=== PATIENT | male | born 1965 | race Caucasian/White ===

== ENCOUNTER → 2016-11-25 | Outpatient (CLI) | payer OTHER | END | disposition home or self-care (01) | LOC: LABWHC1 09:40 | PROVIDERS: ATTEND Internal Medicine | DX: E03.9 Hypothyroidism, unspecified (principal) | CPT/HCPCS: 36415; 84439; 84443; 86376; 86800 ==

== ENCOUNTER → 2017-04-27 | Outpatient (CLI) | payer OTHER | END | disposition home or self-care (01) | LOC: LABWHC1 08:52 | PROVIDERS: ATTEND Internal Medicine | DX: E03.9 Hypothyroidism, unspecified (principal) | CPT/HCPCS: 36415; 84439; 84443 ==

== ENCOUNTER → 2017-07-26 | Outpatient (CLI) | payer OTHER | END | disposition home or self-care (01) | LOC: LABWHC1 07:15 | PROVIDERS: ATTEND Internal Medicine | DX: E03.9 Hypothyroidism, unspecified (principal) | CPT/HCPCS: 36415; 84439; 84443 ==

== ENCOUNTER → 2017-08-23 | Outpatient (CLI) | payer MEDICARE, OTHER ==
--- NOTE | 2017-08-23 23:20 | MR ---
EXAMINATION TYPE: MR foot LT wo/w con DATE OF EXAM: 08/23/2017 COMPARISON: NONE HISTORY: 52-year-old male Soft tissue disorder Technique: Multiplanar, multisequence images of the left foot were obtained before and after administ ration of 8 mL intravenous Gadavist gadolinium contrast. FINDINGS: Within the plantar subcutaneous soft tissues inferior to the second digit at the level of the proxima l phalangeal neck, there is a T2 hyperintense and T1 intermediate signal intensity, nonenhancing, cir cumscribed lesion measuring 1.4 cm wide by 0.9 cm AP by 1.1 cm craniocaudal. This closely approaches but does not seem to directly contact the second flexor tendon. Small MTP joint effusions are present. Degenerative changes noted along the lateral aspect of the fir st MTP joint and also involving the first metatarsal fibular sesamoidal joint. No suspicious bone marrow replacement or evident bone marrow edema. The extensor and flexor tendons show no gross abnormality. No other significant soft tissue abnormali ties seen. A palpable marker is present along the skin surface to indicate the subcutaneous lesion. IMPRESSION: 1. At the site of clinical concern, there is a 1.4 cm circumscribed nonenhancing cyst centered within the subcutaneous fat just inferior to the second proximal phalangeal neck. This closely approaches b ut does not seem to contact the second flexor tendon. Intermediate T1 signal intensity suggests some internal proteinaceous debris or prior hemorrhage. Consider a ganglion or epidermal inclusion cyst. T argeted ultrasound could confirm the cystic nature. 2. The remaining soft tissues and underlying bone show no gross abnormality.
== END | disposition home or self-care (01) ==
LOC: RADMRIMAIN 08:39
PROVIDERS: ATTEND Podiatrist
DX: M67.472 Ganglion, left ankle and foot (principal); R93.7 Abnormal findings on diagnostic imaging of other parts of musculoskeletal system; M79.89 Other specified soft tissue disorders
CPT/HCPCS: 73720; A9581

== ENCOUNTER → 2017-10-04 | Outpatient (CLI) | payer OTHER ==
[2017-10-04 08:23] LABS: Basophils # (A) 0.1 k/uL (0-0.2); Basophils % (A) 1 %; CH 30.1; CHCM 32.4; Eosinophils # (A) 0.3 k/uL (0-0.7); Eosinophils % (A) 4 %; HCT 45.9 % (39.0-53.0); HDW 2.33; HGB 14.6 gm/dL (13.0-17.5); Luc # (Auto) 0.18; Luc % (Auto) 2; Lymphocytes # (A) 3.1 k/uL (1.0-4.8); Lymphocytes % (A) 35 %; MCH 29.8 pg (25.0-35.0); MCHC 31.9 g/dL (31.0-37.0); MCV 93.5 fL (80.0-100.0); Monocytes # (A) 0.9 k/uL (0-1.0); Monocytes % (A) 10 %; Neutrophils # (A) 4.3 k/uL (1.3-7.7); Neutrophils % (A) 48 %; RBC 4.91 m/uL (4.30-5.90); RDW 14.5 % (11.5-15.5); WBC 8.9 k/uL (3.8-10.6); WBC (Perox) 9.18
[2017-10-04 11:39] LABS: ALT 43 U/L (21-72); AST 23 U/L (17-59); Alkaline Phosphatase 98 U/L (38-126); Anion Gap 8 mmol/L; Blood Urea Nitrogen 17 mg/dL (9-20); Calcium 9.9 mg/dL (8.4-10.2); Carbon Dioxide 23 mmol/L (22-30); Chloride 111 mmol/L (98-107); Cholesterol 139 mg/dL (<200); Glucose 102 mg/dL (74-99); HDL Cholesterol 41 mg/dL (40-60); Magnesium 2.1 mg/dL (1.6-2.3); Non-African American GFR(MDRD) >60 (>60 ml/min/1.73 sqM); Potassium 4.4 mmol/L (3.5-5.1); Sodium 142 mmol/L (137-145); Total Bilirubin 0.2 mg/dL (0.2-1.3); Total Protein 6.7 g/dL (6.3-8.2)
[2017-10-04 12:05] LABS: Prostate Specific Antigen 2.11 ng/mL (0.00-4.00)
== END | disposition home or self-care (01) ==
LOC: LABWHC1 07:35
PROVIDERS: ATTEND Internal Medicine
DX: Z00.00 Encounter for general adult medical examination without abnormal findings (principal); R73.9 Hyperglycemia, unspecified; E03.9 Hypothyroidism, unspecified; E78.5 Hyperlipidemia, unspecified; J44.9 Chronic obstructive pulmonary disease, unspecified; E87.8 Other disorders of electrolyte and fluid balance, not elsewhere classified
CPT/HCPCS: 36415; 80053; 80061; 82306; 83036; 83735; 84153; 84439; 84443; 85025

== ENCOUNTER → 2018-01-24 | Outpatient (CLI) | payer OTHER ==
[2018-01-24 08:59] LABS: Basophils # (A) 0.1 k/uL (0-0.2); Basophils % (A) 1 %; Eosinophils # (A) 0.2 k/uL (0-0.7); Eosinophils % (A) 3 %; HCT 44.7 % (39.0-53.0); HGB 15.1 gm/dL (13.0-17.5); Lymphocytes # (A) 3.2 k/uL (1.0-4.8); Lymphocytes % (A) 36 %; MCH 30.1 pg (25.0-35.0); MCHC 33.9 g/dL (31.0-37.0); MCV 88.9 fL (80.0-100.0); Mean Platelet Volume 7.6; Monocytes # (A) 0.6 k/uL (0-1.0); Monocytes % (A) 7 %; Neutrophils # (A) 4.5 k/uL (1.3-7.7); Neutrophils % (A) 51 %; Platelet Count 246 k/uL (150-450); RBC 5.03 m/uL (4.30-5.90); RDW 13.3 % (11.5-15.5); WBC 8.8 k/uL (3.8-10.6)
[2018-01-24 11:49] LABS: T4, Free (Free Thyroxine) 1.14 ng/dL (0.78-2.19)
[2018-01-24 11:51] LABS: ALT 55 U/L (21-72); AST 33 U/L (17-59); Alkaline Phosphatase 97 U/L (38-126); Anion Gap 12 mmol/L; Blood Urea Nitrogen 15 mg/dL (9-20); Calcium 10.3 mg/dL (8.4-10.2); Carbon Dioxide 26 mmol/L (22-30); Chloride 108 mmol/L (98-107); Cholesterol 126 mg/dL (<200); Glucose 96 mg/dL (74-99); HDL Cholesterol 33 mg/dL (40-60); LDL Cholesterol,Calculated 58 mg/dL (0-99); Magnesium 2.1 mg/dL (1.6-2.3); Potassium 4.1 mmol/L (3.5-5.1); Sodium 146 mmol/L (137-145); Total Bilirubin 0.3 mg/dL (0.2-1.3); Total Protein 7.1 g/dL (6.3-8.2); Triglycerides 176 mg/dL (<150)
[2018-01-24 12:03] LABS: Prostate Specific Antigen 2.23 ng/mL (0.00-4.00)
[2018-01-24 20:02] LABS: Hemoglobin A1C 5.4 % (4.0-6.0)
== END | disposition home or self-care (01) ==
LOC: LABWHC1 08:30
PROVIDERS: ATTEND Internal Medicine
DX: Z00.00 Encounter for general adult medical examination without abnormal findings (principal); E78.5 Hyperlipidemia, unspecified; E03.9 Hypothyroidism, unspecified; J44.9 Chronic obstructive pulmonary disease, unspecified; E87.8 Other disorders of electrolyte and fluid balance, not elsewhere classified; R73.9 Hyperglycemia, unspecified
CPT/HCPCS: 36415; 80053; 80061; 82306; 83036; 83735; 84153; 84439; 84443; 85025

== ENCOUNTER → 2018-02-09 | Outpatient (CLI) | payer OTHER ==
--- NOTE | 2018-02-09 10:47 | US ---
EXAMINATION TYPE: US thyroid st tissue head/neck DATE OF EXAM: 02/09/2018 COMPARISON: 10/10/2014 CLINICAL HISTORY: 52-year-old male R04.9 Enlarged nodule. follow up exam Technique: Multiple sonographic images of the thyroid gland are obtained. FINDINGS: GLAND SIZE: Right Lobe: 6.3 x 1.9 x 3.4 cm Overall Parenchyma: heterogenous Left Lobe: 6.2 x 2.1 x 3.6 cm Overall Parenchyma: heterogeneous Isthmus Thickness: 0.9 cm NODULES RIGHT: # of nodules measured on right: 0 LEFT: # of nodules measured on left: 0 ISTHMUS: # of nodules measured in the isthmus: 0 Bilateral neck scanned, no evidence of lymphadenopathy. IMPRESSION: Heterogeneous and enlarged thyroid gland suggesting goiter. No discrete nodules.
== END | disposition home or self-care (01) ==
LOC: RADUSWWP 09:30
PROVIDERS: ATTEND Internal Medicine
DX: E04.9 Nontoxic goiter, unspecified (principal)
CPT/HCPCS: 76536

== ENCOUNTER → 2018-05-02 | Outpatient (CLI) | payer OTHER ==
[2018-05-02 07:46] LABS: Anion Gap 11 mmol/L; Blood Urea Nitrogen 15 mg/dL (9-20); Calcium 9.7 mg/dL (8.4-10.2); Carbon Dioxide 23 mmol/L (22-30); Chloride 110 mmol/L (98-107); Glucose 103 mg/dL (74-99); Potassium 4.2 mmol/L (3.5-5.1); Sodium 144 mmol/L (137-145)
[2018-05-02 08:03] LABS: T4, Free (Free Thyroxine) 1.03 ng/dL (0.78-2.19)
== END | disposition home or self-care (01) ==
LOC: LABWHC1 07:02
PROVIDERS: ATTEND Internal Medicine
DX: I10 Essential (primary) hypertension (principal); E03.9 Hypothyroidism, unspecified
CPT/HCPCS: 36415; 80048; 84439; 84443

== ENCOUNTER → 2018-10-21 | Outpatient (CLI) | payer OTHER ==
[2018-10-21 08:34] LABS: Basophils # (A) 0.1 k/uL (0-0.2); Basophils % (A) 1 %; Eosinophils # (A) 0.3 k/uL (0-0.7); Eosinophils % (A) 4 %; HCT 44.1 % (39.0-53.0); HGB 14.6 gm/dL (13.0-17.5); Lymphocytes % (A) 44 %; MCH 29.9 pg (25.0-35.0); MCV 90.5 fL (80.0-100.0); Mean Platelet Volume 7.4; Monocytes # (A) 0.6 k/uL (0-1.0); Monocytes % (A) 8 %; Neutrophils # (A) 2.8 k/uL (1.3-7.7); Neutrophils % (A) 41 %; Platelet Count 253 k/uL (150-450); RBC 4.87 m/uL (4.30-5.90); RDW 12.9 % (11.5-15.5); WBC 6.9 k/uL (3.8-10.6)
[2018-10-21 09:40] LABS: Ionized Calcium 5.4 mg/dL (4.5-5.3)
[2018-10-21 09:41] LABS: Erythrocyte Sedimentation Rate 7 mm/hr (0-15)
[2018-10-21 20:25] LABS: T4, Free (Free Thyroxine) 1.5 ng/dL (0.80-1.80)
[2018-10-21 20:29] LABS: Albumin 4.4 g/dL (3.80-4.90); Albumin/Globulin Ratio 2.2 (1.20-2.10); Anion Gap 9.2 mmol/L (4.00-12.00); C Reactive Protein 0.4 mg/dL (0.0-0.8); Calcium 9.8 mg/dL (8.7-10.3); Carbon Dioxide 24.8 mmol/L (21.6-31.8); LDL Cholesterol,Calculated 71.6 mg/dL (0.0-131.0); Potassium 4.4 mmol/L (3.5-5.5); Total Bilirubin 0.4 mg/dL (0.3-1.2); Total Protein 6.4 g/dL (6.2-8.2); VLDL Calculation 14.4 mg/dL (5.00-40.00)
== END ==
LOC: LABWHC1 07:26
PROVIDERS: ATTEND Internal Medicine
DX: E55.9 Vitamin D deficiency, unspecified (principal); E78.5 Hyperlipidemia, unspecified; E03.9 Hypothyroidism, unspecified; N40.0 Benign prostatic hyperplasia without lower urinary tract symptoms; J44.9 Chronic obstructive pulmonary disease, unspecified; E87.8 Other disorders of electrolyte and fluid balance, not elsewhere classified; E83.52 Hypercalcemia; D64.9 Anemia, unspecified
CPT/HCPCS: 36415; 80053; 80061; 82306; 82330; 82550; 84153; 84439; 84443; 85025; 85652; 86140

== ENCOUNTER → 2019-05-23 | Outpatient (CLI) | payer OTHER ==
[2019-05-23 07:54] LABS: Basophils # (A) 0.1 k/uL (0-0.2); Basophils % (A) 1 %; Eosinophils # (A) 0.3 k/uL (0-0.7); Eosinophils % (A) 4 %; HCT 42.3 % (39.0-53.0); HGB 14.1 gm/dL (13.0-17.5); Lymphocytes # (A) 3.6 k/uL (1.0-4.8); Lymphocytes % (A) 47 %; MCH 29.6 pg (25.0-35.0); MCHC 33.3 g/dL (31.0-37.0); Mean Platelet Volume 7.9; Monocytes # (A) 0.6 k/uL (0-1.0); Monocytes % (A) 7 %; Neutrophils # (A) 2.9 k/uL (1.3-7.7); Neutrophils % (A) 38 %; Platelet Count 232 k/uL (150-450); RBC 4.76 m/uL (4.30-5.90); WBC 7.7 k/uL (3.8-10.6)
[2019-05-23 17:55] LABS: African American GFR (CKD) 113.4 (60.0-200.0); Calcium 9.4 mg/dL (8.7-10.3); Potassium 4.2 mmol/L (3.5-5.5)
[2019-05-23 18:02] LABS: T4, Free (Free Thyroxine) 1.4 ng/dL (0.80-1.80)
[2019-05-24 03:15] LABS: Albumin/Globulin Ratio 2.11 (1.60-3.17); Globulin 1.9 g/dL (1.6-3.3); Total Bilirubin 0.2 mg/dL (0.3-1.2); Total Protein 5.9 g/dL (6.2-8.2)
[2019-05-24 03:16] LABS: LDL Cholesterol,Calculated 65.4 mg/dL (0.0-131.0); VLDL Calculation 19.6 mg/dL (5.00-40.00)
== END | disposition home or self-care (01) ==
LOC: LABWHC1 07:30
PROVIDERS: ATTEND Internal Medicine
DX: N40.0 Benign prostatic hyperplasia without lower urinary tract symptoms (principal); J44.9 Chronic obstructive pulmonary disease, unspecified; E78.5 Hyperlipidemia, unspecified; I10 Essential (primary) hypertension; E03.9 Hypothyroidism, unspecified; E55.9 Vitamin D deficiency, unspecified
CPT/HCPCS: 36415; 80053; 80061; 82306; 82550; 84439; 84443; 85025; 86900; 86901

== ENCOUNTER → 2019-11-03 | Outpatient (CLI) | payer OTHER ==
[2019-11-03 08:54] LABS: Basophils # (A) 0.1 k/uL (0-0.2); Basophils % (A) 1 %; Eosinophils # (A) 0.3 k/uL (0-0.7); Eosinophils % (A) 4 %; HCT 42.2 % (39.0-53.0); HGB 14.3 gm/dL (13.0-17.5); Lymphocytes # (A) 2.6 k/uL (1.0-4.8); Lymphocytes % (A) 39 %; MCH 30.9 pg (25.0-35.0); MCHC 33.8 g/dL (31.0-37.0); MCV 91.3 fL (80.0-100.0); Mean Platelet Volume 8.3; Monocytes # (A) 0.5 k/uL (0-1.0); Monocytes % (A) 7 %; Neutrophils # (A) 3.2 k/uL (1.3-7.7); Neutrophils % (A) 47 %; Platelet Count 250 k/uL (150-450); RBC 4.62 m/uL (4.30-5.90); RDW 12.8 % (11.5-15.5); WBC 6.7 k/uL (3.8-10.6)
[2019-11-03 09:40] LABS: Erythrocyte Sedimentation Rate 7 mm/hr (0-15)
[2019-11-03 17:03] LABS: ALT 35 U/L (10-49); AST 26 U/L (14-35); Alkaline Phosphatase 90 U/L (41-126); C Reactive Protein <0.4 mg/dL (0.0-0.8); Calcium 8.9 mg/dL (8.7-10.3); Carbon Dioxide 24.8 mmol/L (21.6-31.8); Chloride 112 mmol/L (96-109); Chol/HDL Ratio 3.22; Cholesterol 116 mg/dL (0-200); Creatine Kinase 72 U/L (35-257); Glucose 104 mg/dL (70-110); LDL Cholesterol,Calculated 68.6 mg/dL (0.0-131.0); Non-African American GFR(CKD) 102.7 (60.0-200.0); Potassium 4.1 mmol/L (3.5-5.5); Sodium 143 mmol/L (135-145); Total Bilirubin 0.3 mg/dL (0.3-1.2); Total Protein 6.2 g/dL (6.2-8.2)
== END | disposition home or self-care (01) ==
LOC: LABWHC1 08:27
PROVIDERS: ATTEND Internal Medicine
DX: I10 Essential (primary) hypertension (principal); E55.9 Vitamin D deficiency, unspecified; E78.5 Hyperlipidemia, unspecified; J44.9 Chronic obstructive pulmonary disease, unspecified; N40.0 Benign prostatic hyperplasia without lower urinary tract symptoms
CPT/HCPCS: 36415; 80053; 80061; 82550; 84153; 84439; 84443; 85025; 85652; 86140

== ENCOUNTER 2023-10-27 09:56 | Day surgery (SDC) | payer OTHER ==
[~2023-10-27 09:56] MED LIST: ALPRAZolam 0.25 MG TAB PO PRN; ALPRAZolam 0.5 MG TAB PO PRN; HEPARIN SODIUM,PORCINE (1 ML) 2,500 UNIT in SODIUM CHLORIDE 0.9% 250 ML IRRIGATION PRN; HEPARIN SODIUM,PORCINE 10,000 UNIT in SODIUM CHLORIDE 0.9% 1,000 ML IRRIGATION PRN; NITROGLYCERIN SL TABS 0.4 MG TAB SUBLINGUAL PRN
[2023-10-27] MEDS: SODIUM CHLORIDE 0.9% 1,000 ML in EMPTY BAG 1 BAG IV SCH (10:15)
[2023-10-27 10:28] LABS: Basophils # (A) 0.1 k/uL (0-0.2); Basophils % (A) 1 %; Eosinophils # (A) 0.3 k/uL (0-0.7); Eosinophils % (A) 3 %; HCT 42.6 % (39.0-53.0); Lymphocytes # (A) 3.1 k/uL (1.0-4.8); Lymphocytes % (A) 31 %; MCH 30.4 pg (25.0-35.0); MCHC 32.9 g/dL (31.0-37.0); MCV 92.3 fL (80.0-100.0); Mean Platelet Volume 7.5; Monocytes # (A) 0.6 k/uL (0-1.0); Monocytes % (A) 6 %; Neutrophils # (A) 5.6 k/uL (1.3-7.7); Neutrophils % (A) 57 %; Platelet Count 253 k/uL (150-450); RBC 4.62 m/uL (4.30-5.90); RDW 14.5 % (11.5-15.5); WBC 9.9 k/uL (3.8-10.6)
[2023-10-27] MEDS ORDERED: VERAPAMIL 2.5 MG/ML 2 ML AMP ONE (12:31)
[2023-10-27] MEDS ORDERED: HEPARIN SODIUM 1,000 UN/ML (10ML VL) ONE (12:31)
[2023-10-27] MEDS ORDERED: fentaNYL (PF) 50 MCG/ML 2 ML AMP ONE (12:32)
[2023-10-27] MEDS ORDERED: LIDOCAINE 1% INJ 10MG/ML (20 ML MDV) ONE (12:32)
[2023-10-27] MEDS: fentaNYL (PF) 50 MCG/ML 2 ML AMP IVP ONE (13:03)
[2023-10-27] MEDS: MIDAZOLAM 2 MG/2 ML VIAL IVP ONE (13:03)
[2023-10-27] MEDS: LIDOCAINE 1% INJ 10MG/ML (20 ML MDV) SQ ONE (13:05)
[2023-10-27] MEDS: VERAPAMIL SYRINGE (5 MG/10 ML) INTRAARTER ONE (13:06)
[2023-10-27] MEDS: HEPARIN SODIUM 1,000 UN/ML (10ML VL) IV ONE (13:08)
[2023-10-27] MEDS ORDERED: CLOPIDOGREL 75 MG TAB ONE (13:29)
[2023-10-27] MEDS: CLOPIDOGREL 75 MG TAB PO ONE (13:33)
[2023-10-27] MEDS: IOPAMIDOL-370 100ML BTL INJ ONE ×2 (13:34→14:26)
[2023-10-27] MEDS ORDERED: ALBUTEROL HFA INHALER INHALATION PRN (14:25)
[2023-10-27] MEDS ORDERED: ATROPINE SULFATE 0.1 MG/ML 10ML SYRINGE IV PRN (14:27)
[2023-10-27] MEDS ORDERED: RX INFO: IV CONTRAST WAS GIVEN 1 EACH MISC MISCELLANE PRN (14:27)
[2023-10-27] MEDS ORDERED: ZOLPIDEM 5 MG TAB PO PRN (14:27)
[2023-10-27] MEDS ORDERED: MAG HYDROX/AL HYDROX/SIMETH 30 ML CUP PO PRN (14:27)
[2023-10-27] MEDS: ASPIRIN 325 MG TAB PO STA (17:59)
[2023-10-27] MEDS: IBUPROFEN 600 MG TAB PO SCH (19:36)
[2023-10-27] MEDS: TAMSULOSIN 0.4 MG CAP.ER.24H PO SCH (19:36)
[2023-10-27] MEDS: ATORVASTATIN 40 MG TAB PO SCH (19:36)
[2023-10-27 19:43] VITALS: RESP 18
--- NOTE | 2023-10-27 20:17 | P.PRCINT ---
Percutaneous Coronary Int. - Percutaneous Coronary Intervention Percutaneous Coronary Intervention: PROCEDURES PERFORMED: Left heart catheterization, bilateral coronary angiography, ultrasound guided arterial access, IVUS RCA, shockwave lithotripsy RCA, PCI mid RCA with 3.5 x 23 mm Xience MAGDIEL, post dilated with a 4.0 NC balloon INDICATION: Abnormal stress test CONSENT:I have discussed the risks, benefits and alternative therapies for the above-mentioned procedure and for both sedation/analgesia as well as necessary blood product administration, if indicated, as they pertain to this patient. The patient has indicated understanding and acceptance of the risks and procedures discussed. PROCEDURE: After the risks, benefits and alternatives of the above mentioned procedure explained in detail with the patient, informed consent was obtained. Patient was taken to the catheterization lab and prepped and draped in usual fashion. Ultrasound guidance was used to assess for arterial access. 1% lidocaine was used to anesthetize the right radial artery. A 6-[place]i sheath was placed in the right radial artery using modified Seldinger technique and ultrasound guidance. Left coronary angiography was performed with a 5-[place] JL 3.5 catheter and right coronary angiography was performed with a 5-[place] FR5 ca theter in various views. A 5-[place] AR2 catheter was inserted into the left ventricle and pressure measurements were obtained. The decision was made to perform iFR of the RCA. A 6-[place] AL 0.75 guide was used to engage RCA. A 0.015 pressure wire was advanced into the proximal RCA and normalize. It was then advanced 1 cm distal to the lesion however at this point the wire cable stopped working and could not be reinitiated. Therefore intravascular ultrasound was performed which showed severe RCA stenosis 95%. Therefore decision was made to perform PCI of RCA. Heparin was given for ACT greater than 250. An additional 0.014 BMW wire was advanced in the distal RCA. Pre-balloon angioplasty was performed with a 3.0 x 12 mm balloon. Intravascular ultrasound showed reference vessel 3.5 mm with diffuse mid heavily calcified disease including more proximal to the stenosis. Given heavy calcification, decision was made to perform lithotripsy. Shock wave lithotripsy was performed with a 3.5 mm balloon for 5 passes. Repeat injection showed dissection of the mid RCA. Therefore this was covered with a 3.5 x 23 mm Xience MAGDIEL with the help of a Guideliner. There was still dissection which appeared outside of the area of the stent. Balloon angioplasty was performed with 3.5 x 8 mm noncompliant balloon. Repeat intravascular ultrasound did show some poorly expanded area of the stent and therefore repeat balloon angioplasty was performed with a 4.0 noncompliant balloon. There was a small area of dissection which appeared covered by the stent on intravascular ultrasound. Final angiograms were performed. Preintervention there was 95% stenosis and SHELDON-3 flow and postintervention there was less than 10% stenosis with SHELDON 3 flow. The right radial sheath was removed and a TR band was placed with hemostasis achieved. The patient tolerated the procedure well. Patient was transported back to the post catheterization holding area in stable condition. Conscious Sedation: Patient was monitored under the direct supervision of myself for conscious sedation using Versed and fentanyl for a total duration of 88 minutes HEMODYNAMICS: Aorta: 138/81 LV: 135/12, LVEDP 29mmHG SELECTIVE CORONARY ARTERIOGRAPHY: LEFT MAIN: The left main is a large caliber vessel which bifurcates into the LAD and circumflex. There is no significant stenosis. LEFT ANTERIOR DESCENDING CORONARY ARTERY: LAD is a large caliber vessel which wraps around to the apex. There is proximal LAD 20% stenosis and mid 10-20% stenosis LEFT CIRCUMFLEX CORONARY ARTERY: Left circumflex is a moderate caliber vessel without significant stenosis. RIGHT CORONARY ARTERY: The right coronary artery is a large caliber vessel which gives off a PDA and PLV branch and is the dominant vessel. There is a mid RCA heavily calcified 95% stenosis and otherwise mild 10- 20% stenosis of the proximal and distal RCA. FINAL IMPRESSION: 1. CAD as described above including 20% LAD, 95% RCA stenosis 2. Elevated left sided filling pressures 3. Status post shockwave lithotripsy RCA, PCI mid RCA with 3.5 x 23 mm Xience MAGDIEL, post dilated with a 4.0 NC balloon PLAN: 1. Aggressive risk factor modification per most recent ACC/AHA guidelines. 2. Continue dual antiplatelets with aspirin and Plavix for 6 months
[2023-10-27] MEDS: SYMBICORT 80-4.5 MCG INHALER INHALATION SCH (22:02)
[2023-10-27] MEDS: IPRATROPIUM 0.5 MG/2.5 ML NEBU INHALATION SCH (22:03)
[2023-10-28] MEDS: LEVOTHYROXINE 75 MCG TAB PO SCH (06:18)
[2023-10-28 08:14] LABS: Basophils % (A) 0 %; Eosinophils # (A) 0.4 k/uL (0-0.7); Eosinophils % (A) 4 %; HCT 39.5 % (39.0-53.0); Lymphocytes # (A) 2.4 k/uL (1.0-4.8); Lymphocytes % (A) 19 %; MCH 30.6 pg (25.0-35.0); MCV 92.7 fL (80.0-100.0); Mean Platelet Volume 7.4; Monocytes # (A) 0.7 k/uL (0-1.0); Monocytes % (A) 5 %; Neutrophils # (A) 8.7 k/uL (1.3-7.7); Neutrophils % (A) 71 %; Platelet Count 229 k/uL (150-450); RBC 4.26 m/uL (4.30-5.90); RDW 14.2 % (11.5-15.5); WBC 12.3 k/uL (3.8-10.6)
[2023-10-28 08:27] LABS: African American GFR (CKD) >90 (>60 ml/min/1.73 sqM); Anion Gap 5 mmol/L; Blood Urea Nitrogen 16 mg/dL (9-20); Calcium 8.3 mg/dL (8.4-10.2); Carbon Dioxide 30 mmol/L (22-30); Chloride 101 mmol/L (98-107); Glucose 114 mg/dL (74-99); Non-African American GFR(CKD) >90 (>60 ml/min/1.73 sqM); Potassium 4.1 mmol/L (3.5-5.1); Sodium 136 mmol/L (137-145)
[2023-10-28] MEDS: ASPIRIN 81 MG PO SCH (08:54)
[2023-10-28] MEDS: CHOLECALCIFEROL 25 MCG (1000 IU) TABLET PO SCH (08:54)
[2023-10-28] MEDS: VERAPAMIL SR 240 MG TABLET.ER PO SCH (08:54)
[2023-10-28] MEDS: LOSARTAN 25 MG TAB PO SCH (08:54)
[2023-10-28] MEDS: predniSONE 10 MG TAB PO SCH (08:54)
[2023-10-28] MEDS: FLUoxetine HCL 20 MG CAP PO SCH (08:54)
[2023-10-28] MEDS: CLOPIDOGREL 75 MG TAB PO SCH (08:55)
[2023-10-28 12:10] VITALS: BP 130/76; TEMP 98.5
[2023-10-28 12:35] VITALS: PULSE 62
[2023-10-28 13:27] VITALS: BMI 36.6
--- NOTE | 2023-10-28 14:20 | P.DS ---
Providers Attending physician: John Jaquez DO Consults: 10/27/23 14:27 Consult Physician Routine Consulting Provider: [facility] Consult Reason/Comments: Post Interventional patient Do you want consulting provider notified?: Already Contacted Primary care physician: Dangelo Booth Hospital Course: This is a 58-year-old male who underwent cardiac catheterization with Dr. Jaquez yesterday secondary to abnormal stress test. Cardiac catheterization revealed coronary artery disease including 20% LAD stenosis and 95% RCA stenosis with elevated left sided filling pressures. Patient underwent shockwave lithotripsy RCA and stenting to the mid RCA. Patient is doing well postprocedure with no immediate competitions noted. He denies any chest pain or pressure. Vital signs are stable. The patient is currently on dual antiplatelet therapy with aspirin and Plavix. The patient was deemed stable for discharge home today from a cardiac standpoint per Dr. Jaquez. Please see EMR for further hospital course details. Discharge diagnosis Coronary artery disease, status post PCI of the mid RCA Nurse practitioner note has been reviewed by physician. Signing provider agrees with the documented findings, assessment, and plan of care. Plan - Discharge Summary Discharge Rx Participant: No New Discharge Prescriptions: New Nitroglycerin Sl Tabs [Nitrostat] 0.4 mg SUBLINGUAL Q5M PRN #100 tab PRN Reason: Chest Pain Clopidogrel [Plavix] 75 mg PO DAILY #90 tab Continue Cholecalciferol [Vitamin D3 (25 Mcg = 1000 Iu)] 25 mcg PO DAILY Losartan [Cozaar] 25 mg PO QAM Ibuprofen 600 mg PO BID Verapamil HCl [Verapamil ER] 240 mg PO QAM Albuterol Sulfate [Ventolin HFA] 2 puff INHALATION Q6H PRN PRN Reason: Shortness Of Breath Or Wheezing Fluticasone/Umeclidin/Vilanter [Trelegy Ellipta 100-62.5-25] 2 puff INHALATION BID Atorvastatin [Lipitor] 40 mg PO HS Aspirin [Adult Low Dose Aspirin EC] 81 mg PO QAM Tamsulosin [Flomax] 0.4 mg PO HS Omeprazole 0 mg PO QAM Levothyroxine Sodium 150 mcg PO QAM FLUoxetine HCL 20 mg PO QAM predniSONE 10 mg PO DAILY Discharge Medication List Albuterol Sulfate [Ventolin HFA] 2 puff INHALATION Q6H PRN 10/25/23 [History] Aspirin [Adult Low Dose Aspirin EC] 81 mg PO QAM 12/11/23 [History] Atorvastatin [Lipitor] 40 mg PO HS 10/25/23 [History] Cholecalciferol [Vitamin D3 (25 Mcg = 1000 Iu)] 25 mcg PO DAILY 10/25/23 [History] FLUoxetine HCL 20 mg PO QAM 10/25/23 [History] Fluticasone/Umeclidin/Vilanter [Trelegy Ellipta 100-62.5-25] 2 puff INHALATION BID 10/25/23 [History] Ibuprofen 600 mg PO BID 10/25/23 [History] Levothyroxine Sodium 150 mcg PO QAM 10/25/23 [History] Losartan [Cozaar] 25 mg PO QAM 10/25/23 [History] Omeprazole 0 mg PO QAM 10/25/23 [History] Tamsulosin [Flomax] 0.4 mg PO HS 10/25/23 [History] Verapamil HCl [Verapamil ER] 240 mg PO QAM 10/25/23 [History] predniSONE 10 mg PO DAILY 10/27/23 [History] Clopidogrel [Plavix] 75 mg PO DAILY #90 tab 10/28/23 [Rx] Nitroglycerin Sl Tabs [Nitrostat] 0.4 mg SUBLINGUAL Q5M PRN #100 tab 10/28/23 [Rx] Follow up Appointment(s)/Referral(s): John Jaquez DO [STAFF PHYSICIAN] - 11/02/23 9:15 am (FOLLOW UP APPOINTMENT MADE ) Patient Instructions/Handouts: Heart Catheterization (DC), After Radial Heart Catheterization (GEN) Discharge Disposition: HOME SELF-CARE
== END 2023-10-28 13:50 | disposition home or self-care (01) ==
LOC: CATHCVL 09:56 → 3SCARD 16:10 → CATHCVL 10-28 13:50
PROVIDERS: ATTEND Internal Medicine
DX: I25.10 Atherosclerotic heart disease of native coronary artery without angina pectoris (principal); J44.9 Chronic obstructive pulmonary disease, unspecified; E03.9 Hypothyroidism, unspecified; F17.210 Nicotine dependence, cigarettes, uncomplicated; Z79.02 Long term (current) use of antithrombotics/antiplatelets; Z79.82 Long term (current) use of aspirin; Z79.890 Hormone replacement therapy; Z79.51 Long term (current) use of inhaled steroids; Z79.899 Other long term (current) drug therapy
CPT/HCPCS: 94640 ×2; 94760; 92978; 93458; 0715T; 76937; 80048; 85025 ×2; C9600; C1769 ×3; C1894; C1887 ×2; C1725 ×5; C1753; C1874; C1761; J2250; J2001; J3010; J1644; J7512; Q9967

== ENCOUNTER 2023-11-23 21:02 | Inpatient (IN) | payer OTHER ==
[2023-11-23] MEDS ORDERED: SODIUM CHLORIDE 0.9% 500 ML 500 ML IV STA (21:22)
[2023-11-23] MEDS ORDERED: predniSONE 20 MG TAB PO STA (21:23)
--- NOTE | 2023-11-23 21:49 | ED ---
SOB HPI - General Chief Complaint: Shortness of Breath Stated Complaint: AISSATOU Time Seen by Provider: 11/23/23 21:11 Source: patient, EMS Mode of arrival: EMS Limitations: no limitations - History of Present Illness Initial Comments: This patient is 58-year-old man with history of COPD and recent hospitalization for stent placement secondary to CAD. He arrives by ambulance tonight to have evaluation of worsening dyspnea over the past 1-2 days. The patient denies having fever or chills. There is no chest pain. He has had occasional cough usually with clear sputum, occasional yellow sputum. There is no hemoptysis. The patient denies worsening or relieving factors. He states that his home oxygen which is usually set at 2.5 L is not adequate any longer. MD Complaint: shortness of breath Onset/Timin -: days(s) Severity scale (1-10): 0 Consistency: constant Improves With: oxygen Worsens With: nothing Known History Of: COPD Associated Symptoms: cough Treatments Prior to Arrival: oxygen, bronchodilator - Related Data Home Medications Medication Instructions Recorded Confirmed Albuterol Sulfate [Ventolin HFA] 2 puff INHALATION RT-Q6H PRN 10/25/23 11/24/23 Aspirin [Adult Low Dose Aspirin EC] 81 mg PO DAILY 10/25/23 11/24/23 Atorvastatin [Lipitor] 40 mg PO HS 10/25/23 11/24/23 Cholecalciferol [Vitamin D3 (25 25 mcg PO DAILY 10/25/23 11/24/23 Mcg = 1000 Iu)] FLUoxetine HCL 20 mg PO DAILY 10/25/23 11/24/23 Fluticasone/Umeclidin/Vilanter 2 puff INHALATION RT-BID 10/25/23 11/24/23 [Trelegy Ellipta 100-62.5-25] Ibuprofen 600 mg PO BID 10/25/23 11/24/23 Levothyroxine Sodium 150 mcg PO DAILY 10/25/23 11/24/23 Losartan [Cozaar] 25 mg PO DAILY 10/25/23 11/24/23 Omeprazole 40 mg PO DAILY 10/25/23 11/24/23 Tamsulosin [Flomax] 0.4 mg PO HS 10/25/23 11/24/23 Verapamil HCl [Verapamil ER] 240 mg PO DAILY 10/25/23 11/24/23 Acetaminophen Tab [Tylenol] 325 mg PO Q4H PRN 11/24/23 11/24/23 Nitroglycerin Sl Tabs [Nitrostat] 0.4 mg SL Q5M PRN 11/24/23 11/24/23 Previous Rx's Medication Instructions Recorded Clopidogrel [Plavix] 75 mg PO DAILY #90 tab 10/28/23 predniSONE [Deltasone] 40 mg PO DAILY #30 tab 11/26/23 Allergies Allergy/AdvReac Type Severity Reaction Status Date / Time No Known Allergies Allergy Verified 11/24/23 08:07 Review of Systems ROS Statement: Those systems with pertinent positive or pertinent negative responses have been documented in the HPI. ROS Other: All systems not noted in ROS Statement are negative. Constitutional: Denies: fever, chills, weakness Respiratory: Reports: cough, dyspnea. Denies: hemoptysis Cardiovascular: Denies: chest pain, palpitations, edema, syncope Gastrointestinal: Denies: abdominal pain, nausea, vomiting, diarrhea Genitourinary: Denies: dysuria, frequency, hematuria Musculoskeletal: Denies: back pain Skin: Denies: rash Neurological: Denies: headache, weakness Past Medical History Past Medical History: COPD, GERD/Reflux, Hyperlipidemia, Hypertension, Prostate Disorder Additional Past Medical History / Comment(s): O2-2.5L. APRIL 2021 HAD SEVERE BOUT OF COPD, WAS IN ICU/VENITLATOR @ [facility]. History of Any Multi-Drug Resistant Organisms: None Reported Additional Past Surgical History / Comment(s): REPAIR OF BROKEN JAW. Past Anesthesia/Blood Transfusion Reactions: No Reported Reaction Past Psychological History: Anxiety Smoking Status: Former smoker Past Alcohol Use History: None Reported Past Drug Use History: None Reported - Past Family History Sister(s) Family Medical History: Deep Vein Thrombosis (DVT) General Exam Limitations: no limitations General appearance: alert, in no apparent distress Head exam: Present: atraumatic, normocephalic Eye exam: Present: normal appearance. Absent: scleral icterus, conjunctival injection ENT exam: Present: normal oropharynx Neck exam: Present: normal inspection, full ROM Respiratory exam: Present: respiratory distress (Mild tachypnea), wheezes, accessory muscle use, decreased breath sounds. Absent: rales, rhonchi, stridor Cardiovascular Exam: Present: regular rate, normal rhythm, normal heart sounds. Absent: systolic murmur, diastolic murmur, rubs, gallop GI/Abdominal exam: Present: soft. Absent: distended, tenderness, guarding, rebound, rigid, mass Extremities exam: Present: normal inspection, normal capillary refill. Absent: pedal edema, calf tenderness Back exam: Present: normal inspection. Absent: CVA tenderness (R), CVA tenderness (L) Neurological exam: Present: alert Skin exam: Present: warm, dry, intact, normal color. Absent: rash Course Vital Signs 11/23/23 11/23/23 11/23/23 21:03 22:00 23:00 Temperature 97.0 F L Pulse Rate 70 70 69 Pulse Rate [ Pulse Oximetery ] Respiratory 22 20 24 Rate Blood Pressure 142/92 133/81 135/89 Blood Pressure [Right Arm] O2 Sat by Pulse 96 97 98 Oximetry 11/23/23 11/23/23 11/23/23 23:31 23:43 23:51 Temperature Pulse Rate 73 79 80 Pulse Rate [ Pulse Oximetery ] Respiratory 18 Rate Blood Pressure 122/83 Blood Pressure [Right Arm] O2 Sat by Pulse 98 Oximetry 11/24/23 11/24/23 11/24/23 00:00 01:00 02:00 Temperature Pulse Rate 74 66 73 Pulse Rate [ Pulse Oximetery ] Respiratory 18 18 18 Rate Blood Pressure 122/83 125/72 136/86 Blood Pressure [Right Arm] O2 Sat by Pulse 98 96 98 Oximetry 11/24/23 11/24/23 11/24/23 03:00 06:13 08:06 Temperature 97.9 F 97.8 F Pulse Rate 71 73 Pulse Rate [ 69 Pulse Oximetery ] Respiratory 18 18 18 Rate Blood Pressure 107/68 115/77 Blood Pressure 124/70 [Right Arm] O2 Sat by Pulse 98 97 96 Oximetry 11/24/23 11/24/23 11/24/23 08:17 08:31 14:00 Temperature 97.8 F Pulse Rate 58 L 78 Pulse Rate [ 78 Pulse Oximetery ] Respiratory 20 18 18 Rate Blood Pressure Blood Pressure 115/95 [Right Arm] O2 Sat by Pulse 96 95 Oximetry Medical Decision Making - Medical Decision Making The patient had chest x-ray which I interpreted as showing suspected large bulla throughout the entire right hemithorax. This does appear worse than the patient's previous comparison x-ray. In light of this, will admit patient with consultation to pulmonology. Patient started on steroid and did have nebulized medications pending admission. Was pt. sent in by a medical professional or institution (ANG[facility]LICA Walker, [employer]OR, urgent care, hospital, or retirement...) When possible be specific @ -[No] Did you speak to anyone other than the patient for history (EMS, parent, family, police, friend...)? What history was obtained from this source @ -[No] Did you review nursing and triage notes (agree or disagree)? Why? @ -[I reviewed and agree with nursing and triage notes] Were old charts reviewed (outside hosp., previous admission, EMS record, old EKG, old radiological studies, urgent care reports/EKG's, retirement records)? Report findings @ -[No old charts were reviewed] Differential Diagnosis (chest pain, altered mental status, abdominal pain women, abdominal pain men, vaginal bleeding, weakness, fever, dyspnea, syncope, headache, dizziness, GI bleed, back pain, seizure, CVA, palpatations, mental health, musculoskeletal)? @ -[Differential Dyspnea: Coronary syndrome, arrhythmia, tamponade, asthma, COPD, pulmonary embolism, pneumonia, pneumothorax, pulmonary effusion, anaphylaxis, diabetic ketoacidosis, flailed chest, pulmonary contusion, diaphragmatic rupture, anemia, neuromuscular, this is not meant to be an all-inclusive list. EKG interpreted by me (3pts min.). @ -[I interpreted As above] X-rays interpreted by me (1pt min.). @ -[I interpreted as above CT interpreted by me (1pt min.). @ -[None done] U/S interpreted by me (1pt. min.). @ -[None done] What testing was considered but not performed or refused? (CT, X-rays, U/S, labs)? Why? @ -[None] What meds were considered but not given or refused? Why? @ -[None] Did you discuss the management of the patient with other professionals (professionals i.e. ANGÉLICA Walkre, [employer] T[employer]OR, lab, RT, psych nurse, school social worker, director of event sales, teacher, geological technical officer, case management specialist)? Give summary @ -[No] Was smoking cessation discussed for >3mins.? @ -[No] Was critical care preformed (if so, how long)? @ -[No] Were there social determinants of health that impacted care today? How? (Homelessness, low income, unemployed, alcoholism, drug addiction, transportation, low edu. Level, literacy, decrease access to med. care, penitentiary, rehab)? @ -[No] Was there de-escalation of care discussed even if they declined (Discuss DNR or withdrawal of care, Hospice)? DNR status @ -[No] What co-morbidities impacted this encounter? (DM, HTN, Smoking, COPD, CAD, Cancer, CVA, ARF, Chemo, Hep., AIDS, mental health diagnosis, sleep apnea, morbid obesity)? @ -[None] Was patient admitted / discharged? Hospital course, mention meds given and route, prescriptions, significant lab abnormalities, going to OR and other pertinent info. @ -[As above Undiagnosed new problem with uncertain prognosis? @ -[No] Drug Therapy requiring intensive monitoring for toxicity (Heparin, Nitro, Insulin, Cardizem)? @ -[No] Were any procedures done? @ -[No] Diagnosis/symptom? @ -[Acute dyspnea Exacerbation of chronic bullous emphysema Acute, or Chronic, or Acute on Chronic? @ -[default] Uncomplicated (without systemic symptoms) or Complicated (systemic symptoms)? @ -[Complicated by dyspnea Side effects of treatment? @ -[No] Exacerbation, Progression, or Severe Exacerbation? @ -[Severe exacerbation Poses a threat to life or bodily function? How? (Chest pain, USA, SD, pneumonia, PE, COPD, DKA, ARF, appy, cholecystitis, CVA, Diverticulitis, Homicidal, Suicidal, threat to staff... and all critical care pts) @ -[Yes there is possibility of respiratory failure leading to worsening condition and - Lab Data Result diagrams: 11/23/23 21:38 11/23/23 21:38 Lab Results 11/23/23 11/23/23 11/23/23 Range/Units 21:38 21:38 21:38 WBC 7.3 (3.8-10.6) k/uL RBC 4.01 L (4.30-5.90) m/uL Hgb 12.5 L (13.0-17.5) gm/dL Hct 36.2 L (39.0-53.0) % MCV 90.4 (80.0-100.0) fL MCH 31.2 (25.0-35.0) pg MCHC 34.5 (31.0-37.0) g/dL RDW 14.4 (11.5-15.5) % Plt Count 312 (150-450) k/uL MPV 7.6 Neutrophils % 70 % Lymphocytes % 16 % Monocytes % 8 % Eosinophils % 3 % Basophils % 1 % Neutrophils # 5.1 (1.3-7.7) k/uL Lymphocytes # 1.1 (1.0-4.8) k/uL Monocytes # 0.6 (0-1.0) k/uL Eosinophils # 0.2 (0-0.7) k/uL Basophils # 0.1 (0-0.2) k/uL PT 10.8 (10.0-12.5) sec INR 1.0 (<1.2) APTT 20.9 L (22.0-30.0) sec Sodium 142 (137-145) mmol/L Potassium 4.0 (3.5-5.1) mmol/L Chloride 104 (98-107) mmol/L Carbon Dioxide 25 (22-30) mmol/L Anion Gap 13 mmol/L BUN 16 (9-20) mg/dL Creatinine 0.60 L (0.66-1.25) mg/dL Est GFR (CKD-EPI)AfAm >90 (>60 ml/min/1.73 sqM) Est GFR (CKD-EPI)NonAf >90 (>60 ml/min/1.73 sqM) Glucose 127 H (74-99) mg/dL Plasma Lactic Acid Scout (0.7-2.0) mmol/L Calcium 9.2 (8.4-10.2) mg/dL Total Bilirubin 0.4 (0.2-1.3) mg/dL AST 20 (17-59) U/L ALT 15 (4-49) U/L Alkaline Phosphatase 90 (38-126) U/L Troponin I (0.000-0.034) ng/mL NT-Pro-B Natriuret Pep 117 pg/mL Total Protein 7.2 (6.3-8.2) g/dL Albumin 4.2 (3.5-5.0) g/dL Influenza Type A (PCR) (Not Detectd) Influenza Type B (PCR) (Not Detectd) RSV (PCR) (Not Detectd) SARS-CoV-2 (PCR) (Not Detectd) 11/23/23 11/23/23 11/23/23 Range/Units 21:38 21:38 21:38 WBC (3.8-10.6) k/uL RBC (4.30-5.90) m/uL Hgb (13.0-17.5) gm/dL Hct (39.0-53.0) % MCV (80.0-100.0) fL MCH (25.0-35.0) pg MCHC (31.0-37.0) g/dL RDW (11.5-15.5) % Plt Count (150-450) k/uL MPV Neutrophils % % Lymphocytes % % Monocytes % % Eosinophils % % Basophils % % Neutrophils # (1.3-7.7) k/uL Lymphocytes # (1.0-4.8) k/uL Monocytes # (0-1.0) k/uL Eosinophils # (0-0.7) k/uL Basophils # (0-0.2) k/uL PT (10.0-12.5) sec INR (<1.2) APTT (22.0-30.0) sec Sodium (137-145) mmol/L Potassium (3.5-5.1) mmol/L Chloride (98-107) mmol/L Carbon Dioxide (22-30) mmol/L Anion Gap mmol/L BUN (9-20) mg/dL Creatinine (0.66-1.25) mg/dL Est GFR (CKD-EPI)AfAm (>60 ml/min/1.73 sqM) Est GFR (CKD-EPI)NonAf (>60 ml/min/1.73 sqM) Glucose (74-99) mg/dL Plasma Lactic Acid Scout 1.1 (0.7-2.0) mmol/L Calcium (8.4-10.2) mg/dL Total Bilirubin (0.2-1.3) mg/dL AST (17-59) U/L ALT (4-49) U/L Alkaline Phosphatase (38-126) U/L Troponin I <0.012 (0.000-0.034) ng/mL NT-Pro-B Natriuret Pep pg/mL Total Protein (6.3-8.2) g/dL Albumin (3.5-5.0) g/dL Influenza Type A (PCR) Not Detected (Not Detectd) Influenza Type B (PCR) Not Detected (Not Detectd) RSV (PCR) Not Detected (Not Detectd) SARS-CoV-2 (PCR) Not Detected (Not Detectd) - EKG Data -: EKG Interpreted by Me EKG shows normal: sinus rhythm (With occasional premature supraventricular complex), axis (Normal), intervals (Normal), QRS complexes (Normal), ST-T waves (Normal) Rate: normal (64 bpm) Disposition Clinical Impression: Bullous emphysema Disposition: ADMITTED IP TO THIS HOSP Condition: Fair Is patient prescribed a controlled substance at d/c from ED?: No
--- NOTE | 2023-11-23 22:02 | XR ---
EXAMINATION TYPE: XR chest 2V DATE OF EXAM: 11/23/2023 9:56 PM CLINICAL INDICATION:Male, 58 years old with history of difficulty breathing; COMPARISON: Chest radiographs from 10/04/2015. TECHNIQUE: XR chest 2V Frontal and lateral views of the chest. FINDINGS: Lungs/Pleura: Bilateral bullous emphysema changes most proximal in the right lung. Flattening of the diaphragms. There is no evidence of pleural effusion, focal consolidation, or pneumothorax. Pulmonary vascularity: Unremarkable. Heart/mediastinum: Cardiomediastinal silhouette is unremarkable. Musculoskeletal: No acute osseous pathology. IMPRESSION: Progression of Bolus emphysema changes described scattered streaky atelectasis.
[2023-11-23 22:03] LABS: Basophils # (A) 0.1 k/uL (0-0.2); Basophils % (A) 1 %; Eosinophils # (A) 0.2 k/uL (0-0.7); Eosinophils % (A) 3 %; HCT 36.2 % (39.0-53.0); HGB 12.5 gm/dL (13.0-17.5); Lymphocytes # (A) 1.1 k/uL (1.0-4.8); Lymphocytes % (A) 16 %; MCH 31.2 pg (25.0-35.0); MCHC 34.5 g/dL (31.0-37.0); MCV 90.4 fL (80.0-100.0); Mean Platelet Volume 7.6; Monocytes # (A) 0.6 k/uL (0-1.0); Monocytes % (A) 8 %; Neutrophils # (A) 5.1 k/uL (1.3-7.7); Neutrophils % (A) 70 %; Platelet Count 312 k/uL (150-450); RBC 4.01 m/uL (4.30-5.90); RDW 14.4 % (11.5-15.5); WBC 7.3 k/uL (3.8-10.6)
[2023-11-23 22:18] LABS: ALT 15 U/L (4-49); AST 20 U/L (17-59); African American GFR (CKD) >90 (>60 ml/min/1.73 sqM); Albumin 4.2 g/dL (3.5-5.0); Alkaline Phosphatase 90 U/L (38-126); Anion Gap 13 mmol/L; Blood Urea Nitrogen 16 mg/dL (9-20); Calcium 9.2 mg/dL (8.4-10.2); Carbon Dioxide 25 mmol/L (22-30); Chloride 104 mmol/L (98-107); Glucose 127 mg/dL (74-99); Non-African American GFR(CKD) >90 (>60 ml/min/1.73 sqM); Partial Thromboplastin Time 20.9 sec (22.0-30.0); Prothrombin Time 10.8 sec (10.0-12.5); Sodium 142 mmol/L (137-145); Total Bilirubin 0.4 mg/dL (0.2-1.3); Total Protein 7.2 g/dL (6.3-8.2)
[2023-11-23 22:27] LABS: NT-Pro-B-Type Natriuretic Pept 117 pg/mL
[2023-11-23] MEDS ORDERED: IPRATROPIUM-ALBUTEROL 3 ML NEB INHALATION STA (23:29)
[2023-11-24] MEDS ORDERED: NALOXONE 0.4 MG/ML 1 ML VIAL IVP PRN (01:14)
[2023-11-24] MEDS ORDERED: ACETAMINOPHEN TAB 325 MG TAB PO PRN ×2 (01:14→09:27)
[2023-11-24] MEDS ORDERED: AZITHROMYCIN 500 MG TAB PO STA (05:38)
--- NOTE | 2023-11-24 06:01 | P.CNPUL ---
History of Present Illness Consult date: 11/24/23 Requesting physician: Ace Bauman Reason for consult: COPD Chief complaint: Shortness of breath, productive cough with yellow-green phlegm History of present illness: I am seeing this patient in consultation today 11/24/2023 in the emergency room for acute COPD exacerbation. Patient is a 58-year-old white male with past medical history significant for severe bullous emphysema, previous ventilator dependent respiratory failure, coronary artery disease with recent stent to the RCA, hyperlipidemia, hypertension, and former tobacco smoker quitting in 2019. His PCP is Dr. Booth. Patient has known history of advanced oxygen and steroid dependent COPD. He normally follows with is technician Dr. Melton. He normally uses combination of Trelegy Ellipta and albuterol HFA rescue inhaler. Patient presented to the hospital late last night complaining of progressively worsening shortness of breath over the last 24-48 hours. There is an associated productive cough with yellow/green sputum production. Denies any fevers. He has intermittent headache as well. Denies any chest pain, lower extremity swelling, orthopnea, or palpitations, or syncopal events. Chest x-ray on arrival demonstrated severe bullous emphysema, worse on the right. No evidence of focal consolidation or pneumonia. No pneumothorax. CBC on arrival: WBC count of 7.3, hemoglobin 12.5, hematocrit 36.2, platelets 312. BMP on arrival: Sodium 142, potassium 4, chloride 104, BUN 16, creatinine 0.6, glucose 127. Lactic acid level I.1. Troponins less than 0.012. NT proBNP not elevated. Negative for influenza, RSV, COVID-19. Patient is currently sitting at the edge of the bed, on 4 L/m nasal cannula, in no acute distress. Vitals are stable. Review of Systems REVIEW OF SYSTEMS: CONSTITUTIONAL: Denies any recent significant weight loss or weight gain. EYES: Denies change in vision. EARS, NOSE, MOUTH, THROAT: denies sore throat. Admits intermittent headaches la st 2 days while sick CARDIOVASCULAR: Denies chest pain, palpitations or syncopal episodes. RESPIRATORY: See HPI GASTROINTESTINAL: Denies change in appetite, abdominal pain, nausea and vomiting, or diarrhea GENITOURINARY: Denies hematuria, denies infections. MUSKULOSKELETAL: Denies pain, denies swelling. INTEGUMENTARY: Denies rash, denies eczema. NEUROLOGICAL: Denies recent memory loss, no recent seizure activity. PSYCHIATRIC: Denies anxiety, denies depression. HEMATOLOGIC/LYMPHATIC: Denies anemia, denies enlarged lymph node Past Medical History Past Medical History: COPD, GERD/Reflux, Hyperlipidemia, Hypertension, Prostate Disorder Additional Past Medical History / Comment(s): O2-2.5L. APRIL 2021 HAD SEVERE BOUT OF COPD, WAS IN ICU/VENITLATOR @ [facility]. History of Any Multi-Drug Resistant Organisms: None Reported Additional Past Surgical History / Comment(s): REPAIR OF BROKEN JAW. Past Anesthesia/Blood Transfusion Reactions: No Reported Reaction Past Psychological History: Anxiety Smoking Status: Former smoker Past Alcohol Use History: None Reported Past Drug Use History: None Reported - Past Family History Sister(s) Family Medical History: Deep Vein Thrombosis (DVT) Medications and Allergies Home Medications Medication Instructions Recorded Confirmed Type Albuterol Sulfate [Ventolin HFA] 2 puff INHALATION Q6H PRN 10/25/23 10/27/23 History Aspirin [Adult Low Dose Aspirin EC] 81 mg PO QAM 10/25/23 10/27/23 History Atorvastatin [Lipitor] 40 mg PO HS 10/25/23 10/27/23 History Cholecalciferol [Vitamin D3 (25 25 mcg PO DAILY 10/25/23 10/27/23 History Mcg = 1000 Iu)] FLUoxetine HCL 20 mg PO QAM 10/25/23 10/27/23 History Fluticasone/Umeclidin/Vilanter 2 puff INHALATION BID 10/25/23 10/27/23 History [Trelegy Ellipta 100-62.5-25] Ibuprofen 600 mg PO BID 10/25/23 10/25/23 History Levothyroxine Sodium 150 mcg PO QAM 10/25/23 10/27/23 History Losartan [Cozaar] 25 mg PO QAM 10/25/23 10/27/23 History Omeprazole 0 mg PO QAM 10/25/23 10/27/23 History Tamsulosin [Flomax] 0.4 mg PO HS 10/25/23 10/27/23 History Verapamil HCl [Verapamil ER] 240 mg PO QAM 10/25/23 10/27/23 History predniSONE 10 mg PO DAILY 10/27/23 10/27/23 History Clopidogrel [Plavix] 75 mg PO DAILY #90 tab 10/28/23 Rx Nitroglycerin Sl Tabs [Nitrostat] 0.4 mg SUBLINGUAL Q5M PRN #100 tab 10/28/23 Rx Allergies Allergy/AdvReac Type Severity Reaction Status Date / Time No Known Allergies Allergy Verified 11/23/23 21:11 Physical Exam Vitals: Vital Signs Temp Pulse Resp BP Pulse Ox 11/24/23 03:00 71 18 107/68 98 11/24/23 02:00 73 18 136/86 98 11/24/23 01:00 66 18 125/72 96 11/24/23 00:00 74 18 122/83 98 11/23/23 23:51 80 11/23/23 23:43 79 11/23/23 23:31 73 18 122/83 98 11/23/23 23:00 69 24 135/89 98 11/23/23 22:00 70 20 133/81 97 11/23/23 21:03 97.0 F L 70 22 142/92 96 Intake and Output 11/23/23 11/23/23 11/24/23 14:59 22:59 06:59 Other: Weight 83.915 kg GENERAL EXAM: Alert, 58-year-old white male appearing older than stated age , sitting at the edge of the bed, fairly comfortable in no apparent distress. HEAD: Normocephalic and atraumatic EYES: Normal reaction of pupils, equal size. NOSE: Clear with pink turbinates. THROAT: No erythema or exudates. NECK: No masses, no JVD. CHEST: No chest wall deformity. LUNGS: Equal air entry with markedly diminished lung sounds bilaterally. no crackles, wheeze, rhonchi. No conversational dyspnea or accessory muscle use.. CVS: S1 and S2 normal with no audible murmur, regular rhythm. No extra heart sounds ABDOMEN: No hepatosplenomegaly, active bowel sounds, no guarding or rigidity. SPINE: No scoliosis or deformity SKIN: No rashes CENTRAL NERVOUS SYSTEM: No focal deficits, tone is normal in all 4 extremities. EXTREMITIES: There is no peripheral edema, clubbing, or cyanosis. Peripheral pulses are intact. Results - Laboratory Findings CBC and BMP: 11/23/23 21:38 11/23/23 21:38 PT/INR, D-dimer PT 10.8 sec (10.0-12.5) 11/23/23 21:38 INR 1.0 (<1.2) 11/23/23 21:38 Abnormal lab findings: Abnormal Labs 11/23/23 11/23/23 11/23/23 21:38 21:38 21:38 RBC 4.01 L Hgb 12.5 L Hct 36.2 L APTT 20.9 L Creatinine 0.60 L Glucose 127 H - Diagnostic Findings Chest x-ray: image reviewed Assessment and Plan Assessment: Acute on chronic hypoxemic respiratory failure, secondary to acute COPD exacerbation and possible acute tracheobronchitis. Chest x-ray on arrival did not show any focal infiltrates or evidence of pneumonia. It did show severe bullous changes. No pneumothorax. Negative for influenza, RSV, COVID-19. Severe bullous emphysema Chronic hypoxemic respiratory failure, secondary to above Previous history of ventilator dependent respiratory failure Coronary artery disease, with recent stent to the RCA on 10/27/2023 Hyperlipidemia Benign essential hypertension GERD without esophagitis Former tobacco smoker, quitting in 2019 Plan: Patient's medications, labs, chest x-ray reviewed Continue supplemental oxygen Start patient on combination of DuoNeb's and IV Solu-Medrol. Resume Trelegy Ellipta inhaler from home Empirically cover patient on azithromycin. We will continue to follow, and further recommendations are forthcoming I have personally seen and examined the patient, performed the documentation and the assessment and plan as written. Number of minutes spent on the visit:20 Time with Patient: Greater than 30
[2023-11-24] MEDS: methylPREDNISolone SOD SUCCI 125 MG/2 ML VIAL IV SCH ×3 (06:11→18:42)
[2023-11-24] MEDS ORDERED: NON FORMULARY DRUG (Fluticasone/Umeclidin/Vilanter [Trelegy Ellipta 100-62.5-25] 1 EACH Bl INHALATION SCH (08:00)
[2023-11-24] MEDS ORDERED: IPRATROPIUM-ALBUTEROL 3 ML NEB INHALATION SCH (08:00)
[2023-11-24] MEDS: FLUTICASONE INHALATION SCH (08:30)
[2023-11-24] MEDS: VILANTER INHALATION SCH (08:30)
[2023-11-24] MEDS: UMECLIDIN BL INHALATION SCH (08:30)
[2023-11-24] MEDS ORDERED: predniSONE 20 MG TAB PO SCH (09:00)
[2023-11-24] MEDS ORDERED: NITROGLYCERIN SL TABS 0.4 MG TAB SUBLINGUAL PRN (09:27)
[2023-11-24] MEDS: ASPIRIN 81 MG PO SCH (09:59)
[2023-11-24] MEDS: IBUPROFEN 600 MG TAB PO SCH ×2 (09:59→21:32)
[2023-11-24] MEDS: FLUoxetine HCL 20 MG CAP PO SCH (09:59)
[2023-11-24] MEDS: PANTOPRAZOLE 40 MG TABLET PO SCH (09:59)
[2023-11-24] MEDS: CLOPIDOGREL 75 MG TAB PO SCH (09:59)
[2023-11-24] MEDS: CHOLECALCIFEROL 25 MCG (1000 IU) TABLET PO SCH (10:00)
[2023-11-24] MEDS: LOSARTAN 25 MG TAB PO SCH (10:00)
[2023-11-24] MEDS: LEVOTHYROXINE 75 MCG TAB PO SCH (10:00)
[2023-11-24] MEDS: VERAPAMIL SR 240 MG TABLET.ER PO SCH (10:05)
--- NOTE | 2023-11-24 11:24 | P.HPIM ---
History of Present Illness H&P Date: 11/24/23 Chief Complaint: Short of breath History and physical Date 11/24/[address] DEVINE Patient seen in the emergency room module #21. Chief complaint: Severe shortness of breath was not improved at home with his medication and inhalation therapy, called the EMS brought him to [facility] ER. History of present illness: 58 years old white male presented to the emergency room, module #21, seen by Dr. Bautista in the ER physician and at that time patient was decompensated and his chest x-ray was significant bullous emphysema and with the patient history of s tenting and coronary artery disease and permanent oxygen and a history of expectoration M changing color and history of coronary artery disease and stenting by Dr. Jaquez. Dr. Bautista requested the admission with the for further evaluation with the pulmonary and critical care as he is not improving. In the ER his chest x-ray indicating bullous emphysema with no evidence of pneumonia and also laboratory found normal renal function, blood glucose 127, lactic acid 1.1 and a pro-BMP 117 with no evidence of congestive heart failure, patient on Plavix 75 mg daily by the cardiology. His pro time and INR within normal limit and PTT 20.9 His white count was 7.3 and the hemoglobin 12.5 and a hematocrit 36.2 platelet count 312. 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 Past medical history he had history of emphysema advanced lung disease and COPD, history of intubation and ventilator at [facility], GERD disease with reflux, hyperlipidemia, hypertension, benign prostatic hypertrophy. Surgical history repair of broken jaw. And anxiety and depression For more smoker he used to smoke 2 packs a day for more than 30 years No recent drugs or alcohol intake. Family history DVT. Current list of medication: Albuterol sulfate HFA 2 puffs every 6 hours, aspirin enteric-coated 81 mg every morning, Lipitor 40 mg at at bedtime, vitamin D3 25 g daily He is on fluoxetine 20 mg every morning He is on Terlegy elipta [id number] 2. 525. Levothyroxine sodium 150 g every morning for hypothyroidism Losartan 25 mg every morning for hypertension Omeprazole 20 mg by mouth before meals breakfast for GERD disease Haney Lodosyn/Flomax 0.4 mg for at bedtime for benign prostatic hypertrophy. Verapamil meal HCl ER 240 mg every morning Prednisone 10 mg daily for his pulmonary disease chronic Plavix 75 mg daily for his stent by Dr. Jaquez Nitroglycerin sublingual 0.4 mg when necessary. ALLERGY is unknown. Weight 83.9 kg. Program review of system Patient main complaint and oriented about his breathing and become progressively short of breath and despite of treatment at home. Patient on permanent oxygen with history of bullous emphysema and advanced lung disease. History of coronary artery disease has been not bothering him no chest pain recently and no evidence of congestive heart failure or angina Endocrine has been stable no complain Musculoskeletal eat all has been generalized weakness Patient is ambulatory. Psychiatry he is short temper with the anxiety and depression. Neurologically no history of CVA in the past. Physical exam: The head was normocephalic and atraumatic, pupil was equal reactive he has puffing of his facial and he had dentures, normal hearing. Neck was supple no JVD no thyromegaly no lymphadenopathy trachea midline. Chest: Increased anteroposterior diameter with the barrel chest and currently with the treatment that he had in the ambulance has been improved with the bullous emphysema and still short of breath. Heart regular sinus rhythm occasional PVC recent stent by Dr. Jaquez. Abdomen protuberant positive bowel sound no tenderness in the four-quadrant. Extremities positive pulses no edema able to ambulate. Skin dryness. Assessment: #1 acute exacerbation of COPD on the top of chronic with the hypoglycemia chronically on permanent oxygen #2 patient has high risk of decompensation and previous history of intubation and ventilatory support #3 tracheobronchitis with coughing #4 and anxiety and depression #5 bullous emphysema with advanced disease #6 hypothyroidism #7 hypertension with hypertensive heart disease controlled currently with the current medication line #8 benign prostatic hypertrophy. #9 coronary artery disease and atherosclerotic heart disease status post angiop lasty and stent of the right coronary artery by Dr. Jaquez. #10 vitamin D deficiency #11 GERD disease. #12 generalized osteoarthritis. Plan: #1 consulting pulmonary and critical care for evaluation and treatment especially with the bullous emphysema and patient deterioration. #2 continue the oxygen 2.5 L with chronic hypoxemia. #3 obtain sputum for culture and sensitivity. #4 for further treatment depend on the patient improvement. Past Medical History Past Medical History: COPD, GERD/Reflux, Hyperlipidemia, Hypertension, Prostate Disorder Additional Past Medical History / Comment(s): O2-2.5L. APRIL 2021 HAD SEVERE BOUT OF COPD, WAS IN ICU/VENITLATOR @ [facility]. History of Any Multi-Drug Resistant Organisms: None Reported Additional Past Surgical History / Comment(s): REPAIR OF BROKEN JAW. Past Anesthesia/Blood Transfusion Reactions: No Reported Reaction Past Psychological History: Anxiety Smoking Status: Former smoker Past Alcohol Use History: None Reported Past Drug Use History: None Reported - Past Family History Sister(s) Family Medical History: Deep Vein Thrombosis (DVT) Medications and Allergies Home Medications Medication Instructions Recorded Confirmed Type RX: Albuterol Sulfate [Ventolin 2 puff INHALATION RT-Q6H PRN 10/25/23 11/24/23 History HFA] RX: Aspirin [Adult Low Dose 81 mg PO DAILY 10/25/23 11/24/23 History Aspirin EC] RX: Atorvastatin [Lipitor] 40 mg PO HS 10/25/23 11/24/23 History RX: Cholecalciferol [Vitamin D3 25 mcg PO DAILY 10/25/23 11/24/23 History (25 Mcg = 1000 Iu)] RX: FLUoxetine HCL 20 mg PO DAILY 10/25/23 11/24/23 History RX: Fluticasone/Umeclidin/Vilanter 2 puff INHALATION RT-BID 10/25/23 11/24/23 History [Trelegy Ellipta 100-62.5-25] RX: Ibuprofen 600 mg PO BID 10/25/23 11/24/23 History RX: Levothyroxine Sodium 150 mcg PO DAILY 10/25/23 11/24/23 History RX: Losartan [Cozaar] 25 mg PO DAILY 10/25/23 11/24/23 History RX: Omeprazole 40 mg PO DAILY 10/25/23 11/24/23 History RX: Tamsulosin [Flomax] 0.4 mg PO HS 10/25/23 11/24/23 History RX: Verapamil HCl [Verapamil ER] 240 mg PO DAILY 10/25/23 11/24/23 History RX: Clopidogrel [Plavix] 75 mg PO DAILY #90 tab 10/28/23 11/24/23 Rx Acetaminophen Tab [Tylenol] 325 mg PO Q4H PRN 11/24/23 11/24/23 History RX: Nitroglycerin Sl Tabs 0.4 mg SL Q5M PRN 11/24/23 11/24/23 History [Nitrostat] Allergies Allergy/AdvReac Type Severity Reaction Status Date / Time No Known Allergies Allergy Verified 11/24/23 08:07 Physical Exam Vitals: Vital Signs Temp Pulse Pulse Resp BP BP Pulse Ox 11/24/23 08:31 78 18 11/24/23 08:17 58 L 20 96 11/24/23 08:06 97.8 F 69 18 124/70 96 11/24/23 06:13 97.9 F 73 18 115/77 97 11/24/23 03:00 71 18 107/68 98 11/24/23 02:00 73 18 136/86 98 11/24/23 01:00 66 18 125/72 96 11/24/23 00:00 74 18 122/83 98 11/23/23 23:51 80 11/23/23 23:43 79 11/23/23 23:31 73 18 122/83 98 11/23/23 23:00 69 24 135/89 98 11/23/23 22:00 70 20 133/81 97 11/23/23 21:03 97.0 F L 70 22 142/92 96 Intake and Output 11/23/23 11/24/23 11/24/23 22:59 06:59 14:59 Other: Weight 83.915 kg Results CBC & Chem 7: 11/23/23 21:38 11/23/23 21:38 Labs: Abnormal Lab Results - Last 24 Hours (Table) 11/23/23 11/23/23 11/23/23 Range/Units 21:38 21:38 21:38 RBC 4.01 L (4.30-5.90) m/uL Hgb 12.5 L (13.0-17.5) gm/dL Hct 36.2 L (39.0-53.0) % APTT 20.9 L (22.0-30.0) sec Creatinine 0.60 L (0.66-1.25) mg/dL Glucose 127 H (74-99) mg/dL
[2023-11-24] MEDS: ALBUTEROL NEBULIZED 2.5 MG/3 ML INHALATION PRN (20:30)
[2023-11-24] MEDS: TAMSULOSIN 0.4 MG CAP.ER.24H PO SCH (21:33)
[2023-11-24] MEDS: ATORVASTATIN 40 MG TAB PO SCH (21:33)
[2023-11-25] MEDS: methylPREDNISolone SOD SUCCI 125 MG/2 ML VIAL IV SCH ×5 (00:05→23:40)
[2023-11-25] MEDS: ZOLPIDEM 5 MG TAB PO PRN ×2 (02:24→23:40)
[2023-11-25] MEDS: LEVOTHYROXINE 75 MCG TAB PO SCH (06:13)
[2023-11-25] MEDS: CLOPIDOGREL 75 MG TAB PO SCH (09:30)
[2023-11-25] MEDS: AZITHROMYCIN 250 MG TAB PO SCH (09:30)
[2023-11-25] MEDS: PANTOPRAZOLE 40 MG TABLET PO SCH (09:30)
[2023-11-25] MEDS: LOSARTAN 25 MG TAB PO SCH (09:30)
[2023-11-25] MEDS: FLUoxetine HCL 20 MG CAP PO SCH (09:30)
[2023-11-25] MEDS: VERAPAMIL SR 240 MG TABLET.ER PO SCH (09:30)
[2023-11-25] MEDS: CHOLECALCIFEROL 25 MCG (1000 IU) TABLET PO SCH (09:30)
[2023-11-25] MEDS: ASPIRIN 81 MG PO SCH (09:30)
[2023-11-25] MEDS: IBUPROFEN 600 MG TAB PO SCH ×2 (09:31→20:16)
[2023-11-25] MEDS: VILANTER INHALATION SCH (12:10)
[2023-11-25] MEDS: FLUTICASONE INHALATION SCH (12:10)
[2023-11-25] MEDS: UMECLIDIN BL INHALATION SCH (12:10)
[2023-11-25] MEDS: ALBUTEROL NEBULIZED 2.5 MG/3 ML INHALATION PRN ×2 (12:10→19:51)
--- NOTE | 2023-11-25 14:19 | P.PN ---
Subjective Progress Note Date: 11/25/23 I am seeing this patient in consultation today 11/24/2023 in the emergency room for acute COPD exacerbation. Patient is a 58-year-old white male with past medical history significant for severe bullous emphysema, previous ventilator dependent respiratory failure, coronary artery disease with recent stent to the RCA, hyperlipidemia, hypertension, and former tobacco smoker quitting in 2019. His PCP is Dr. Booth. Patient has known history of advanced oxygen and steroid dependent COPD. He normally follows with staff pharmacist hospital Dr. Melton. He normally uses combination of Trelegy Ellipta and albuterol HFA rescue inhaler. Patient presented to the hospital late last night complaining of progressively worsening shortness of breath over the last 24-48 hours. There is an associated productive cough with yellow/green sputum production. Denies any fevers. He has intermittent headache as well. Denies any chest pain, lower extremity swelling, orthopnea, or palpitations, or syncopal events. Chest x-ray on arrival demonstrated severe bullous emphysema, worse on the right. No evidence of focal consolidation or pneumonia. No pneumothorax. CBC on arrival: WBC count of 7.3, hemoglobin 12.5, hematocrit 36.2, platelets 312. BMP on arrival: Sodium 142, potassium 4, chloride 104, BUN 16, creatinine 0.6, glucose 127. Lactic acid level I.1. Troponins less than 0.012. NT proBNP not elevated. Negative for influenza, RSV, COVID-19. Patient is currently sitting at the edge of the bed, on 4 L/m nasal cannula, in no acute distress. Vitals are stable. The patient is seen today 11/25/2023 in follow-up on the regular medical floor. He is currently resting comfortably in bed. Awake and alert in no acute distress. Breathing easier today compared to yesterday. Not quite back to his baseline. Still with some dyspnea on exertion. Dyspnea with conversation. He is maintained on albuterol, his home Trelegy, Solu-Medrol. he is on empiric antibiotics in the form of azithromycin. No new labs today. Objective - Vital Signs Vital signs: Vital Signs Temp 98.3 F 11/25/23 06:54 Pulse 64 11/25/23 12:23 Resp 17 11/25/23 06:54 BP 130/75 11/25/23 06:54 Pulse Ox 94 L 11/25/23 06:54 FiO2 Intake & Output 11/24/23 11/25/23 11/25/23 18:59 06:59 18:59 Intake Total 750 Output Total 900 Balance -150 Weight 83.915 kg Intake: Oral 750 Output: Urine 900 Stool 0 Other: Voiding Method Toilet # Voids 4 - Exam GENERAL EXAM: Alert, 58-year-old male, resting in bed, on 2 L nasal cannula, comfortable in no apparent distress. HEAD: Normocephalic and atraumatic EYES: Normal reaction of pupils, equal size. NOSE: Clear with pink turbinates. THROAT: No erythema or exudates. NECK: No masses, no JVD. CHEST: No chest wall deformity. LUNGS: Equal air entry with markedly diminished lung sounds bilaterally, wheeze. CVS: S1 and S2 normal with no audible murmur, regular rhythm. No extra heart sounds ABDOMEN: No hepatosplenomegaly, active bowel sounds, no guarding or rigidity. SPINE: No scoliosis or deformity SKIN: No rashes CENTRAL NERVOUS SYSTEM: No focal deficits, tone is normal in all 4 extremities. EXTREMITIES: There is no peripheral edema, clubbing, or cyanosis. Peripheral pulses are intact. - Labs CBC & Chem 7: 11/23/23 21:38 11/23/23 21:38 Assessment and Plan Assessment: Acute on chronic hypoxemic respiratory failure, secondary to acute COPD exacerbation and possible acute tracheobronchitis. Chest x-ray on arrival did not show any focal infiltrates or evidence of pneumonia. It did show severe bullous changes. No pneumothorax. Negative for influenza, RSV, COVID-19. Severe bullous emphysema Chronic hypoxemic respiratory failure, secondary to above Previous history of ventilator dependent respiratory failure Coronary artery disease, with recent stent to the RCA on 10/27/2023 Hyperlipidemia Benign essential hypertension GERD without esophagitis Former tobacco smoker, quitting in 2019 Plan: The patient was seen and evaluated Medications are reviewed Improved today compared to yesterday Continue the current treatment plan We will continue to follow Probable discharge in the a.m. I have personally seen and examined the patient, performed the documentation and the assessment and plan as written. Number of minutes spent on the visit: 10.
--- NOTE | 2023-11-25 16:14 | P.PN ---
Subjective Progress Note Date: 11/25/23 (Short of breath) Principal diagnosis: COPD exacerbation, tracheobronchitis Chronic respiratory failure on oxygen O2 permanently 2.5 L at home. Coronary artery disease atherosclerotic heart stent on the right coronary artery by Dr. Jaquez. Acute hypoxemia on the top of chronic on admission with desaturation. Bullous emphysema Progress on Dictation by Dr. Perdomo Date of service 11/25/2023. Patient seen and evaluated [id number], Patient stated that he had some improvement and able to go to the bathroom, [id number]. Patient seen by pulmonary and critical care. His vital sign temperature 98.5 F oral Heart rate 85 bpm Respiratory rate 17 per minute Blood pressure 117/71 with a mean 86. Patient oxygen saturation 93% nasal cannula on 2 L. 58 years old white male with a history of chronic smoker more than 2 packs per day for more than 30 years however he has stopped smoking after episode of acute respiratory failure was admitted and then at [facility] he was intubated and resuscitated and he had also underlying pneumonia Patient at that time extubated and was treated with antibiotic and made it and went home. Since then he did not smoke as he stated he also used to drink once in a while but not anymore. And he become dependent on oxygen therapy with the chronic respiratory failure Patient has emphysematous bullae was shown by computed tomography scan and x-ray in the past with no effective treatment. Patient came to [facility] emergency room by ambulance after he become severely short of breath even to go to the bathroom in spite of using his old medication at home. In the ER patient treated with inhalation therapy and Dr. Bautista at that time was worried about his bullae and to be deteriorated as well to need to intubation a nd at this time patient admitted to the hospital to be seen by pulmonary and critical care and to design any for further treatment needed. Patient was started on a steroid and inhalation therapy seen and followed by Dr. Mendoza and today he is gradual improvement as patient stated himself. And reviewing the records and the note for Dr. Mendoza indicating plan for discharge tomorrow if she continue to be stable. On examination: Patient is conscious alert oriented, able to express his feelings and is satisfying of the treatment. Head was normocephalic atraumatic Pupil equal reactive He had dentures upper and lower Hearing normal Neck was supple no thyromegaly no lymphadenopathy Chest was hyperinflated lung with emphysematous bullae and almost bilateral chest and no wheezes now. Heart history of coronary artery disease and atherosclerotic heart disease and stent of the right coronary artery done by Dr. Jaquez canine service teacher Abdomen soft obese positive bowel sounds Extremities no edema. Pulses Assessment: #1 acute exacerbation of COPD on the top of chronic #2 acute respiratory failure on the top of chronic #3 patient on permanent oxygen supplementation with the chronic hypoxemia. #4 emphysematous bullae with emphysema. #5 shortness of breath with minimal exertion. #6 coronary artery disease atherosclerotic heart disease with the right coronary artery stent. #7 tracheobronchitis #8 vitamin D deficiency on supplementation 9#Depression and anxiety on medication. #10 hyperlipidemia #11 hypertension uncontrolled. #12 GERD disease controlled. #13 currently on a steroid pleuropulmonary #14 hypothyroidism treated. 9 #14 insomnia. Plan: #1 was called lost night at 2 AM because the patient could not sleep and was started him on Ambien 5 mg daily at bedtime when necessary. #2 patient on steroid #3 continued improvement will plan for discharge home however will ask the pulmonary to adjust his steroids and give him the prescription. And also will check with the pulmonary regard to the azithromycin if needed or not as well. Objective - Vital Signs Vital signs: Vital Signs Temp 98.5 F 11/25/23 13:19 Pulse 85 11/25/23 13:19 Resp 17 11/25/23 13:19 BP 117/71 11/25/23 13:19 Pulse Ox 93 L 11/25/23 13:19 FiO2 Intake & Output 11/24/23 11/25/23 11/25/23 18:59 06:59 18:59 Intake Total 750 Output Total 900 Balance -150 Weight 83.915 kg Intake: Oral 750 Output: Urine 900 Stool 0 Other: Voiding Method Toilet # Voids 4 - Labs CBC & Chem 7: 11/23/23 21:38 11/23/23 21:38
[2023-11-25] MEDS: ATORVASTATIN 40 MG TAB PO SCH (20:16)
[2023-11-25] MEDS: TAMSULOSIN 0.4 MG CAP.ER.24H PO SCH (20:16)
[2023-11-26] MEDS: LEVOTHYROXINE 75 MCG TAB PO SCH (06:40)
[2023-11-26] MEDS: methylPREDNISolone SOD SUCCI 125 MG/2 ML VIAL IV SCH (06:41)
[2023-11-26] MEDS: CLOPIDOGREL 75 MG TAB PO SCH (08:54)
[2023-11-26] MEDS: FLUoxetine HCL 20 MG CAP PO SCH (08:54)
[2023-11-26] MEDS: LOSARTAN 25 MG TAB PO SCH (08:54)
[2023-11-26] MEDS: AZITHROMYCIN 250 MG TAB PO SCH (08:54)
[2023-11-26] MEDS: IBUPROFEN 600 MG TAB PO SCH (08:54)
[2023-11-26] MEDS: CHOLECALCIFEROL 25 MCG (1000 IU) TABLET PO SCH (08:54)
[2023-11-26] MEDS: PANTOPRAZOLE 40 MG TABLET PO SCH (08:54)
[2023-11-26] MEDS: ASPIRIN 81 MG PO SCH (08:54)
[2023-11-26] MEDS: VERAPAMIL SR 240 MG TABLET.ER PO SCH (08:55)
[2023-11-26] MEDS ORDERED: predniSONE 20 MG TAB PO SCH (09:00)
[2023-11-26] MEDS: ALBUTEROL NEBULIZED 2.5 MG/3 ML INHALATION PRN (12:20)
[2023-11-26] MEDS: VILANTER INHALATION SCH ×2 (12:20→12:24)
[2023-11-26] MEDS: FLUTICASONE INHALATION SCH ×2 (12:20→12:24)
[2023-11-26] MEDS: UMECLIDIN BL INHALATION SCH ×2 (12:20→12:24)
--- NOTE | 2023-11-26 13:55 | P.PN ---
Subjective Progress Note Date: 11/26/23 I am seeing this patient in consultation today 11/24/2023 in the emergency room for acute COPD exacerbation. Patient is a 58-year-old white male with past medical history significant for severe bullous emphysema, previous ventilator dependent respiratory failure, coronary artery disease with recent stent to the RCA, hyperlipidemia, hypertension, and former tobacco smoker quitting in 2019. His PCP is Dr. Booth. Patient has known history of advanced oxygen and steroid dependent COPD. He normally follows with automatic transmission mechanic Dr. Melton. He normally uses combination of Trelegy Ellipta and albuterol HFA rescue inhaler. Patient presented to the hospital late last night complaining of progressively worsening shortness of breath over the last 24-48 hours. There is an associated productive cough with yellow/green sputum production. Denies any fevers. He has intermittent headache as well. Denies any chest pain, lower extremity swelling, orthopnea, or palpitations, or syncopal events. Chest x-ray on arrival demonstrated severe bullous emphysema, worse on the right. No evidence of focal consolidation or pneumonia. No pneumothorax. CBC on arrival: WBC count of 7.3, hemoglobin 12.5, hematocrit 36.2, platelets 312. BMP on arrival: Sodium 142, potassium 4, chloride 104, BUN 16, creatinine 0.6, glucose 127. Lactic acid level I.1. Troponins less than 0.012. NT proBNP not elevated. Negative for influenza, RSV, COVID-19. Patient is currently sitting at the edge of the bed, on 4 L/m nasal cannula, in no acute distress. Vitals are stable. The patient is seen today 11/25/2023 in follow-up on the regular medical floor. He is currently resting comfortably in bed. Awake and alert in no acute distress. Breathing easier today compared to yesterday. Not quite back to his baseline. Still with some dyspnea on exertion. Dyspnea with conversation. He is maintained on albuterol, his home Trelegy, Solu-Medrol. he is on empiric antibiotics in the form of azithromycin. No new labs today. The patient is seen today 11/26/2023 in follow-up on the regular medical floor. He is awake and alert in no acute distress. Feeling a bit better today compared to yesterday. He is maintaining O2 saturations in the 90s on 2 L/m per nasal cannula. No IV fluids. His procalcitonin was 0.03. He is continued on bronchodilators and steroids. Objective - Vital Signs Vital signs: Vital Signs Temp 97.6 F 11/26/23 06:54 Pulse 76 11/26/23 12:30 Resp 18 11/26/23 06:54 BP 158/71 11/26/23 06:54 Pulse Ox 94 L 11/26/23 06:54 FiO2 Intake & Output 11/25/23 11/26/23 11/26/23 18:59 06:59 18:59 Output Total 300 Balance -300 Output: Urine 300 Other: Voiding Method Toilet # Voids 1 # Bowel Movements 1 - Exam GENERAL EXAM: Alert, pleasant 58-year-old male, on 4 L nasal cannula, comfortable in no apparent distress. HEAD: Normocephalic and atraumatic EYES: Normal reaction of pupils, equal size. NOSE: Clear with pink turbinates. THROAT: No erythema or exudates. NECK: No masses, no JVD. CHEST: No chest wall deformity. LUNGS: Equal air entry with markedly diminished lung sounds bilaterally, wheeze. CVS: S1 and S2 normal with no audible murmur, regular rhythm. No extra heart sounds ABDOMEN: No hepatosplenomegaly, active bowel sounds, no guarding or rigidity. SPINE: No scoliosis or deformity SKIN: No rashes CENTRAL NERVOUS SYSTEM: No focal deficits, tone is normal in all 4 extremities. EXTREMITIES: There is no peripheral edema, clubbing, or cyanosis. Peripheral pulses are intact. - Labs CBC & Chem 7: 11/23/23 21:38 11/23/23 21:38 Labs: Microbiology - Last 24 Hours (Table) 11/24/23 20:50 Gram Stain - Preliminary Sputum Assessment and Plan Assessment: Acute on chronic hypoxemic respiratory failure, secondary to acute COPD exacerbation and possible acute tracheobronchitis. Chest x-ray on arrival did not show any focal infiltrates or evidence of pneumonia. It did show severe bullous changes. No pneumothorax. Negative for influenza, RSV, COVID-19. Pro- calcitonin negative at 0.03 Severe bullous emphysema Chronic hypoxemic respiratory failure, secondary to above Previous history of ventilator dependent respiratory failure Coronary artery disease, with recent stent to the RCA on 10/27/2023 Hyperlipidemia Benign essential hypertension GERD without esophagitis Former tobacco smoker, quitting in 2019 Plan: The patient was seen and evaluated Medications are reviewed Transition Solu-Medrol to prednisone taper Titrate down the FiO2 as tolerated Probable discharge in the a.m. I have personally seen and examined the patient, performed the documentation and the assessment and plan as written. Number of minutes spent on the visit: 10.
--- NOTE | 2023-11-26 15:23 | P.DS ---
Providers Date of admission: 11/24/23 01:16 Expected date of discharge: 11/26/23 Attending physician: Dangelo Booth Consults: 11/24/23 01:16 Consult Physician Routine Consulting Provider: Cathy Williamson Consult Reason/Comments: COPD exacerbation Do you want consulting provider notified?: Yes Primary care physician: Dangelo Booth Discharge summary date of service 11/26/[address] Booth Patient seen and evaluated [id number], Final diagnoses: Acute on the top of chronic hypoxic respiratory failure Secondary to COPD exacerbation with the possible acute tracheobronchitis Severe bullous emphysema Acute on the top of chronic respiratory failure Coronary artery disease atherosclerotic heart disease Status post stent in the right coronary artery on 10/27/2028 Hypo-thyroidism Hyperlipidemia Benign essential hypertension GERD without esophagitis History of chronic smoker quitting on 2019 with more than 30 years ago smoking. : Dr. Mendoza pulmonary and critical care who accepted to follow the patient as outpatient. Recommendation by pulmonary: Prednisone 40 mg daily and continue bronchodilator and inhalation therapy. Presentation in the ER: Short of breath with failure of outpatient treatment X-ray admission bullous emphysema. Patient on chronic oxygen at home 2 L/m continue. Condition on discharge stable Examination on discharge: Patient is conscious alert oriented 3 no exacerbation at the time and stabbing lites. Vital sign temperature 97.6 F oral, heart rate 59 however goes up to 76 with motion and activity Respiratory rate 18/m Blood pressure ranging between 127/73 and 158/71. Patient has been allowed to increase his oxygen to 3 L/m Head was normocephalic and atraumatic, oropharynx with dentures, normal hearing Neck supple no JVD no thyromegaly no lymphadenopathy trachea midline. Heart regular sinus rhythm Abdomen obese soft positive bowel sounds no tenderness Extremities positive pulses no edema. Neurologically: No lateralizing sign no neuro deficit Psychiatry underlying depression and anxiety Pulmonary clear them discharge and Dr. Mendoza except to follow him as outpatient Patient will be followed in the office on Wednesday morning, he will be followed by Dr. Mendoza as outpatient Medication reviewed and reconciled and prescription for prednisone given which is the only changes added to his treatment 40 mg tablet daily until reevaluated in the office of Dr. Yao. Patient Condition at Discharge: Fair Plan - Discharge Summary Discharge Rx Participant: No New Discharge Prescriptions: New predniSONE [Deltasone] 40 mg PO DAILY #30 tab Continue Cholecalciferol [Vitamin D3 (25 Mcg = 1000 Iu)] 25 mcg PO DAILY Losartan [Cozaar] 25 mg PO DAILY Ibuprofen 600 mg PO BID Verapamil HCl [Verapamil ER] 240 mg PO DAILY Nitroglycerin Sl Tabs [Nitrostat] 0.4 mg SL Q5M PRN PRN Reason: Chest Pain Albuterol Sulfate [Ventolin HFA] 2 puff INHALATION RT-Q6H PRN PRN Reason: Shortness Of Breath Or Wheezing Fluticasone/Umeclidin/Vilanter [Trelegy Ellipta 100-62.5-25] 2 puff INHALATION RT-BID Atorvastatin [Lipitor] 40 mg PO HS Aspirin [Adult Low Dose Aspirin EC] 81 mg PO DAILY Tamsulosin [Flomax] 0.4 mg PO HS Omeprazole 40 mg PO DAILY Levothyroxine Sodium 150 mcg PO DAILY FLUoxetine HCL 20 mg PO DAILY Clopidogrel [Plavix] 75 mg PO DAILY #90 tab Acetaminophen Tab [Tylenol] 325 mg PO Q4H PRN PRN Reason: Pain Discharge Medication List Albuterol Sulfate [Ventolin HFA] 2 puff INHALATION RT-Q6H PRN 10/25/23 [History] Aspirin [Adult Low Dose Aspirin EC] 81 mg PO DAILY 10/25/23 [History] Atorvastatin [Lipitor] 40 mg PO HS 10/25/23 [History] Cholecalciferol [Vitamin D3 (25 Mcg = 1000 Iu)] 25 mcg PO DAILY 10/25/23 [History] FLUoxetine HCL 20 mg PO DAILY 10/25/23 [History] Fluticasone/Umeclidin/Vilanter [Trelegy Ellipta 100-62.5-25] 2 puff INHALATION RT-BID 10/25/23 [History] Ibuprofen 600 mg PO BID 10/25/23 [History] Levothyroxine Sodium 150 mcg PO DAILY 10/25/23 [History] Losartan [Cozaar] 25 mg PO DAILY 10/25/23 [History] Omeprazole 40 mg PO DAILY 10/25/23 [History] Tamsulosin [Flomax] 0.4 mg PO HS 10/25/23 [History] Verapamil HCl [Verapamil ER] 240 mg PO DAILY 10/25/23 [History] Clopidogrel [Plavix] 75 mg PO DAILY #90 tab 10/28/23 [Rx] Acetaminophen Tab [Tylenol] 325 mg PO Q4H PRN 11/24/23 [History] Nitroglycerin Sl Tabs [Nitrostat] 0.4 mg SL Q5M PRN 11/24/23 [History] predniSONE [Deltasone] 40 mg PO DAILY #30 tab 11/26/23 [Rx] Follow up Appointment(s)/Referral(s): Janusz Mendoza DO [Doctor of Osteopathic Medicine] - 1 Week Dangelo Booth MD [Primary Care Provider] - 11/29/23 10:00 am Patient Instructions/Handouts: COPD (Chronic Obstructive Pulmonary Disease) (DC)
[2023-11-26 15:30] VITALS: BP 93/57; PULSE 80; RESP 17; TEMP 98.2
== END 2023-11-26 17:40 | disposition home or self-care (01) | DRG 140 ==
LOC: EC 21:02 → 4SSUR 11-24 01:16
PROVIDERS: ADMIT Internal Medicine; ATTEND Internal Medicine
DX: J44.0 Chronic obstructive pulmonary disease with (acute) lower respiratory infection (principal); J96.21 Acute and chronic respiratory failure with hypoxia; I11.9 Hypertensive heart disease without heart failure; J20.9 Acute bronchitis, unspecified; J43.9 Emphysema, unspecified; J44.1 Chronic obstructive pulmonary disease with (acute) exacerbation; E03.9 Hypothyroidism, unspecified; E55.9 Vitamin D deficiency, unspecified; K21.9 Gastro-esophageal reflux disease without esophagitis; I25.10 Atherosclerotic heart disease of native coronary artery without angina pectoris; E78.5 Hyperlipidemia, unspecified; N40.0 Benign prostatic hyperplasia without lower urinary tract symptoms; G47.00 Insomnia, unspecified; F41.9 Anxiety disorder, unspecified; F32.A Depression, unspecified; M15.9 Polyosteoarthritis, unspecified; Z99.81 Dependence on supplemental oxygen; Z79.82 Long term (current) use of aspirin; Z79.02 Long term (current) use of antithrombotics/antiplatelets; Z79.51 Long term (current) use of inhaled steroids; Z79.1 Long term (current) use of non-steroidal anti-inflammatories (NSAID); Z79.890 Hormone replacement therapy; Z79.899 Other long term (current) drug therapy; Z95.5 Presence of coronary angioplasty implant and graft; Z87.891 Personal history of nicotine dependence
CPT/HCPCS: 36415; 71046; 80053; 83605; 83880; 84145; 84443; 84484; 85025; 85610; 85730; 87070; 87205; 87636; 93005; 94640; 94760; 96361; 96374; 96376; 99285